=== PATIENT | female | born 1950 | race Caucasian/White ===

== ENCOUNTER 2021-12-16 06:43 | Day surgery (SDC) | payer MEDICARE ==
[~2021-12-16] VITALS: Ht 157.5 cm; Wt 88.6 kg
[2021-12-16] MEDS ORDERED: Synthroid200 MCG PO (07:50)
[2021-12-16] MEDS ORDERED: Zocor20 MG PO (07:54)
[2021-12-16] MEDS ORDERED: LOSA25 (07:54)
--- NOTE | 2021-12-16 08:32 | NUR ---
12/16/21 0832 Jai Andersen HISTORY, CHART, MEDICATIONS AND ALLERGIES REVIEWED BEFORE START OF PROCEDURE. PATIENT CONFIRMS NPO STATUS AND AGREES WITH SCHEDULED PROCEDURE. 3-LEAD EKG REVIEWED WITH PHYSICIAN PRIOR TO START OF PROCEDURE. MONITOR INTACT WITH CONTINUOUS PULSE OXIMETRY,CAPNOGRAPHY, 3-LEAD EKG, INTERMITTENT BP. SUPPLEMENTAL O2 TO BE TITRATED THROUGHOUT PROCEDURE TO MAINTAIN O2 SATURATION ABOVE 90%. PATIENT DETERMINED TO BE ASA APPROPRIATE FOR PROPOFOL SEDATION PRIOR TO START OF PROCEDURE BY DR. SANTANA.
--- NOTE | 2021-12-16 09:39 | NUR ---
IMGAING IS ABLE TO SCHEDULE PT IN THIS AM. Discharge instructions reviewed with patient. Patient verbalizes understanding. Copy given to patient to take home. PT TX TO IMAGING FOR PROCEDURE AND READY TO BE DISCHARGED FOLLOWING PROCEDURE. RIDE UPDATED.
== END 2021-12-16 23:38 | disposition home or self-care (01) ==
LOC: ORSCSDS 06:43 → ORSCMMR 06:43 → ORSCSDS 08:15
PROVIDERS: Surgery
PROC: 0DJD8ZZ Inspection of Lower Intestinal Tract, Via Natural or Artificial Opening Endoscopic (ICD-10-PCS; principal; 2021-12-16 08:15)
DX: R19.5 Other fecal abnormalities (principal); R19.4 Change in bowel habit; C80.0 Disseminated malignant neoplasm, unspecified; E78.5 Hyperlipidemia, unspecified; E03.9 Hypothyroidism, unspecified; E66.9 Obesity, unspecified; Z68.36 Body mass index [BMI] 36.0-36.9, adult; Z79.899 Other long term (current) drug therapy
CPT/HCPCS: 74270; J2704; J7120

== ENCOUNTER 2021-12-29 10:04 | Observation (INO) | payer MEDICARE ==
[~2021-12-29] VITALS: Ht 157.5 cm; Wt 92.0 kg
[~2021-12-29 10:04] MED LIST: LOSA25 PO; Synthroid200 MCG PO; Zocor20 MG PO
[2021-12-29] MEDS ORDERED: AMLO5 PO (11:22)
--- NOTE | 2021-12-29 15:00 | NUR ---
PT ARRIVES TO STEP DOWN ALERT AND TALKING. SITTING UPRIGHT IN BED. PT DENIES PAIN OR NAUSEA. R CHEST WALL INCISIONAL SITE AND R NECK INCISIONAL SITE, CDI C SKIN GLUE. PT REPOSITIONED IN BED FOR COMFORT. INTERMITTENTLY PTS BIOX DROPS TO 60-70'S. PT ABLE TO DEEP BREATH AND SPO2 RETURNS TO 90S. PT PLACED ON /02/NC p SPO2 CONTINUES TO INTERMITTENTLY DROP. HR INCREASES FROM 80S TO 120-130'S. PT DENIES SOB OR CP DURING EPISODES. PT PWD. NO CYANOSIS NOTED. PT RESTING IN BED OR INTERMITTENTLY TALKING WHEN EPISODES OCCUR. REPORTS ONGOING INTERMITTENT DIZZINESS WHEN AT HOME. LS CLEAR T/O, DIMISHED ON RIDE SIDE. XRAY COMPLETE IN PACY. EKG'S COMPLETE AND TO DR. HERNANDEZ/ED. PT MOVES TO CHAIR C ASSISTANCE FOR COMFORT, DIZZINESS C MOVEMENT. ATTEMPT TO REMOVE O2 p 99% C TITRATION, PT CONTINUES TO DESAT INTO THE LOW 80S. PLACED BACK ON 02 AND MOVED TO BED. HR REGULARLY IN 120S AT THIS TIME. PT CONTINUES TO DENY CP/SOB.
--- NOTE | 2021-12-29 15:18 | NUR ---
DR. VALENCIA CALLED FOR EVAL AND POSSIBLE ADMISSION.
--- NOTE | 2021-12-29 16:05 | NUR ---
DR. MORALES AT BEDSIDE FOR EXAM.
[2021-12-29 16:17] LABS: PCO2 Arterial 54.3 mmHg (35-45); PO2 Arterial 63.8 mmHg (80-100); pH Blood Arterial 7.38 (7.35-7.45)
[2021-12-29 16:28] LABS: BASOPHILS ABSOLUTE AUTO 0.01 K/mm3 (0.00-0.23); BASOPHILS PERCENT AUTO 0 % (0-2); EOSINOPHILS ABSOLUTE AUTO 0.08 K/mm3 (0.00-0.68); EOSINOPHILS PERCENT AUTO 1 % (0-6); Hematocrit 45.3 % (33.0-51.0); Hemoglobin 14.4 g/dL (11.5-16.0); Mean Corpuscular HGB 28.9 pg (26.0-34.0); Mean Corpuscular HGB Conc 31.8 g/dL (31.5-36.5); Mean Corpuscular Volume 91 fL (80-100); Mean Platelet Volume 10.9 fL (9.1-12.4); Platelet Count 115 K/mm3 (150-400); RDW Coefficient Variation 13.2 % (11.7-14.2); RDW Standard Deviation 44.7 fL (35.1-46.3); Red Blood Cell Count 4.99 M/mm3 (3.80-5.20); White Blood Cell Count 6.66 K/mm3 (4.00-11.30)
[2021-12-29 16:29] LABS: IMMATURE GRAN PERCENT AUTO 0 % (0-1); LYMPHOCYTES ABSOLUTE AUTO 0.19 K/mm3 (0.84-5.20); LYMPHOCYTES PERCENT AUTO 3 % (21-46); MONOCYTES PERCENT AUTO 1 % (4-13); NEUTROPHILS ABSOLUTE AUTO 6.33 K/mm3 (1.96-9.15); NEUTROPHILS PERCENT AUTO 95 % (41-73)
[2021-12-29 16:30] LABS: IMMATURE GRAN ABSOLUTE AUTO 0.01 K/mm3 (0.00-0.10); MONOCYTES ABSOLUTE AUTO 0.04 K/mm3 (0.16-1.47)
--- NOTE | 2021-12-29 16:50 | NUR ---
TOOK OVER PATIENT CARE AFTER REPORT WAS RECEIVED FROM NURSE. WAITING ON NURSE SUPERVISIOR FOR A PCU BED FOR PATIENT TO BE ADMITTED.
--- NOTE | 2021-12-29 17:02 | NUR ---
PATIENT TO CT VIA [facility]
[2021-12-29 17:20] LABS: Albumin, Blood 3.1 g/dL (3.4-5.0); Albumin/Globulin Ratio 0.9 (0.8-1.8); Bilirubin, Total 0.6 mg/dL (0.1-1.0); Bun/Creatinine Ratio 22.2 (12.0-20.0); Calcium, Blood 8.2 mg/dL (8.5-10.1); Creatinine, Blood 0.63 mg/dL (0.40-1.00); Globulin, Blood 3.3 g/dL (2.2-4.0); Potassium, Blood 3.7 mmol/L (3.5-5.5); Total Protein, Blood 6.4 g/dL (6.4-8.2)
--- NOTE | 2021-12-29 21:13 | NUR ---
Assumed care 1900. VSS on 2L sating 90-94%. Pt tachypnea with excertion. RR 20-26. Tele: SR/ST 80-120s. Pt has fluid running 75ml/hr and antibiotic given this evening per orders. Pt up with supervision to bathroom. Will continue to monitor.
--- NOTE | 2021-12-29 21:44 | NUR ---
Increased oxygen to 3L nasal canula while pt is sleeping, desat to 88-90 while sleeping.
--- NOTE | 2021-12-29 23:40 | NUR ---
At 2300 vital, pt temp up to 100.3 and HR is sustaining 120s, MD updated on pt and new orders for antibiotics and labs added by .
--- NOTE | 2021-12-30 00:03 | NUR ---
Pt is diaphoretic, bolus 1L is running. Oxygen 92-95% on 3L. Abx given. Will check vitals closely. BP stable at this time. HR 120s sustained. MD aware and ordered labs, bolus and additional abx. Pt pretty sleepy/ drowsy, but does wake up to voice. Falls back alseep quickly. Oriented x4 at this time.
[2021-12-30 01:06] LABS: BASOPHILS ABSOLUTE AUTO 0.01 K/mm3 (0.00-0.23); BASOPHILS PERCENT AUTO 0 % (0-2); EOSINOPHILS ABSOLUTE AUTO 0.06 K/mm3 (0.00-0.68); EOSINOPHILS PERCENT AUTO 1 % (0-6); Hematocrit 40.4 % (33.0-51.0); Hemoglobin 12.8 g/dL (11.5-16.0); Mean Corpuscular HGB 29.2 pg (26.0-34.0); Mean Corpuscular HGB Conc 31.7 g/dL (31.5-36.5); Mean Corpuscular Volume 92 fL (80-100); Mean Platelet Volume 10.8 fL (9.1-12.4); Platelet Count 86 K/mm3 (150-400); RDW Coefficient Variation 13.2 % (11.7-14.2); RDW Standard Deviation 44.8 fL (35.1-46.3); Red Blood Cell Count 4.39 M/mm3 (3.80-5.20); White Blood Cell Count 5.27 K/mm3 (4.00-11.30)
[2021-12-30 01:13] LABS: IMMATURE GRAN ABSOLUTE AUTO 0.01 K/mm3 (0.00-0.10); IMMATURE GRAN PERCENT AUTO 0 % (0-1); LYMPHOCYTES ABSOLUTE AUTO 0.17 K/mm3 (0.84-5.20); LYMPHOCYTES PERCENT AUTO 3 % (21-46); MONOCYTES ABSOLUTE AUTO 0.06 K/mm3 (0.16-1.47); MONOCYTES PERCENT AUTO 1 % (4-13); NEUTROPHILS ABSOLUTE AUTO 4.96 K/mm3 (1.96-9.15); NEUTROPHILS PERCENT AUTO 94 % (41-73)
[2021-12-30 01:18] LABS: Albumin, Blood 2.6 g/dL (3.4-5.0); Anion Gap 6 mmol/L (6-16); Blood Urea Nitrogen 10 mg/dL (8-24); Bun/Creatinine Ratio 21.6 (12.0-20.0); CO2, Blood 30 mmol/L (21-32); Calcium, Blood 7.5 mg/dL (8.5-10.1); Chloride, Blood 101 mmol/L (98-108); Creatinine, Blood 0.46 mg/dL (0.40-1.00); Glomerular Filtration Rate 101 (60-); Glucose, Blood 108 mg/dL (70-99); Potassium, Blood 3.6 mmol/L (3.5-5.5); Sodium, Blood 137 mmol/L (136-145)
--- NOTE | 2021-12-30 03:49 | NUR ---
Updated MD that HR has still been sustaining 110-120s after bolus.
--- NOTE | 2021-12-30 04:16 | NUR ---
family welfare social work professor Note: Pt is alert &oriented, but has been pretty drowsy throughout the night. Wakes up easily, but falls right back to sleep. HR titrated up to 110-120s and sustained and pt spiked a fever overnight 100.3. MD notifed and lactic acid, CBC, 1L bolus and additional antibiotic orders added by Dr. Martinez. Fluid continued at 75ml/hr. HR did decrease briefly after bolus to 90s, but then jumped back up to 110-120s, MD notified. Pt has been on 2-3L to sustain >90. Pt drops some when sleepin and rate is irregular when pt is sleeping[facility], no redness or swelling noticed on assessment. Supervision when up to bathroom. 2 PIVs, both are working well.
[2021-12-30 04:44] LABS: BASOPHILS ABSOLUTE AUTO 0.03 K/mm3 (0.00-0.23); BASOPHILS PERCENT AUTO 1 % (0-2); EOSINOPHILS ABSOLUTE AUTO 0.09 K/mm3 (0.00-0.68); EOSINOPHILS PERCENT AUTO 2 % (0-6); Hematocrit 41.2 % (33.0-51.0); Hemoglobin 13.2 g/dL (11.5-16.0); IMMATURE GRAN ABSOLUTE AUTO 0.04 K/mm3 (0.00-0.10); IMMATURE GRAN PERCENT AUTO 1 % (0-1); LYMPHOCYTES ABSOLUTE AUTO 0.22 K/mm3 (0.84-5.20); LYMPHOCYTES PERCENT AUTO 5 % (21-46); MONOCYTES ABSOLUTE AUTO 0.09 K/mm3 (0.16-1.47); MONOCYTES PERCENT AUTO 2 % (4-13); Mean Corpuscular HGB 29.1 pg (26.0-34.0); Mean Corpuscular Volume 91 fL (80-100); NEUTROPHILS ABSOLUTE AUTO 4.38 K/mm3 (1.96-9.15); NEUTROPHILS PERCENT AUTO 90 % (41-73); RDW Coefficient Variation 13.1 % (11.7-14.2); RDW Standard Deviation 43.6 fL (35.1-46.3); Red Blood Cell Count 4.54 M/mm3 (3.80-5.20); White Blood Cell Count 4.85 K/mm3 (4.00-11.30)
[2021-12-30 05:00] LABS: Mean Platelet Volume 11.3 fL (9.1-12.4); Platelet Count 83 K/mm3 (150-400)
[2021-12-30 13:02] LABS: Influenza A, PCR NEGATIVE (NEGATIVE); Influenza B, PCR NEGATIVE (NEGATIVE); Resp Syncytial Virus, PCR NEGATIVE (NEGATIVE); SARS-Cov-2 (COVID-19) PCR, MMC NEGATIVE (NEGATIVE)
--- NOTE | 2021-12-30 17:57 | NUR ---
SHIFT SUMMARY; ASSUMED CARE AT 0700. A/A/OX4. INDEPENDANT IN ROOM. DRESSING ON MEDIPORT SITE CLEAN DRY AND INTACT. IV FLUIDS INFUSING AT 75ML/HR. 2L O2 TO MAINTAIN SATS AT 94%. TMAX IN AFTERNOON AT 101.7. UPDATED DR. THRASHER, WILL CONTINUE TO MONITOR. PT DECLINES TYL FOR TEMP. L/S DIM THROUGHOUT. WILL CONTINUE TO MONITOR AND TREAT UNTIL CHANGE OF SHIFT.
--- NOTE | 2021-12-30 21:51 | NUR ---
Pt was asking about home medication levothyroxine, Dr. Laws called and new order placed for home med to be added back in.
--- NOTE | 2021-12-31 02:07 | NUR ---
Pt sustaining 120-130s HR, notified. One time dose of Lopressor 5mg ordered per Dr. Stratton.
--- NOTE | 2021-12-31 02:38 | NUR ---
Pt HR now 80s after 5mg IV lopressor.
[2021-12-31 04:09] LABS: BASOPHILS ABSOLUTE AUTO 0.02 K/mm3 (0.00-0.23); BASOPHILS PERCENT AUTO 1 % (0-2); EOSINOPHILS ABSOLUTE AUTO 0.06 K/mm3 (0.00-0.68); EOSINOPHILS PERCENT AUTO 3 % (0-6); Hematocrit 38.6 % (33.0-51.0); Hemoglobin 12.2 g/dL (11.5-16.0); IMMATURE GRAN ABSOLUTE AUTO 0.02 K/mm3 (0.00-0.10); IMMATURE GRAN PERCENT AUTO 1 % (0-1); LYMPHOCYTES ABSOLUTE AUTO 0.18 K/mm3 (0.84-5.20); LYMPHOCYTES PERCENT AUTO 8 % (21-46); MONOCYTES ABSOLUTE AUTO 0.08 K/mm3 (0.16-1.47); MONOCYTES PERCENT AUTO 4 % (4-13); Mean Corpuscular HGB 28.7 pg (26.0-34.0); Mean Corpuscular HGB Conc 31.6 g/dL (31.5-36.5); Mean Corpuscular Volume 91 fL (80-100); Mean Platelet Volume 11.5 fL (9.1-12.4); NEUTROPHILS ABSOLUTE AUTO 1.95 K/mm3 (1.96-9.15); NEUTROPHILS PERCENT AUTO 84 % (41-73); Platelet Count 77 K/mm3 (150-400); Red Blood Cell Count 4.25 M/mm3 (3.80-5.20); White Blood Cell Count 2.31 K/mm3 (4.00-11.30)
--- NOTE | 2021-12-31 04:14 | NUR ---
Automatic Vulcanizing Lead Operator Note: Pt alert and oriented. BP stable. HR was 90s at start of shift, around midnight was sustaining 120-130s, one time dose of metoprolol given per night hospitalist. HR 80s after dose. Fluids running 75ml/hr. 2-3L oxygen, desats some when sleeping. Slept on and off overnight.
[2021-12-31 04:23] LABS: Albumin, Blood 2.5 g/dL (3.4-5.0); Anion Gap 5 mmol/L (6-16); Blood Urea Nitrogen 6 mg/dL (8-24); Bun/Creatinine Ratio 14.1 (12.0-20.0); CO2, Blood 32 mmol/L (21-32); Calcium, Blood 7.8 mg/dL (8.5-10.1); Chloride, Blood 102 mmol/L (98-108); Creatinine, Blood 0.43 mg/dL (0.40-1.00); Glomerular Filtration Rate 103 (60-); Glucose, Blood 117 mg/dL (70-99); Magnesium, Blood 2.2 mg/dL (1.6-2.4); Phosphorus, Blood 2.3 mg/dL (2.5-4.9); Potassium, Blood 3.6 mmol/L (3.5-5.5); Sodium, Blood 139 mmol/L (136-145)
--- NOTE | 2021-12-31 06:32 | NUR ---
Pt wheezing this AM and SOB, RT paged for prn breathing tx.
--- NOTE | 2021-12-31 11:49 | NUR ---
PATIENT TRANSFERED UP FROM [facility]. SHE HAS K-PHOS RUNNING AT THIS TIME. SHE WILL BE SALINE LOCKED AFTERWARD. 4 LITERS OF OXYGEN/NC IS IN PLACE. DENIES SOB. LS ARE MORE DIMINISHED ON THE RIGHT SIDE, WITH VERY FEW CRACKLES THROUGHOUT BILATERALLY. SHE HAS SLIGHT EDEMA IN LOWER EXTREMITIES. DENIES PAIN. PATIENT IS ALERT AND ORIENTATED, RESTING ON BED WITH EYES CLOSED AT THIS TIME.
--- NOTE | 2021-12-31 16:50 | NUR ---
T/C RECEIVED FROM TELE MONITOR, PT HAS BEEN SUSTAINING IN THE 130'S, PT RESTING COMFORTABLY WHEN CHECKED. NO S/S OF DISTRESS. CALL TO DR THRASHER, ORDERS FOR IV LOPRESSOR TO BE PLACED.
--- NOTE | 2021-12-31 17:15 | NUR ---
5 MG IV LOPRESSOR PUSHED, WILL MONITOR RESULTS
--- NOTE | 2021-12-31 17:25 | NUR ---
T/C FROM TELE MONITOR, PT'S HR IS NOW IN THE 80'S.
[2022-01-01 05:12] LABS: Hematocrit 38.1 % (33.0-51.0); Hemoglobin 12.1 g/dL (11.5-16.0); Mean Corpuscular HGB 28.8 pg (26.0-34.0); Mean Corpuscular HGB Conc 31.8 g/dL (31.5-36.5); Mean Corpuscular Volume 91 fL (80-100); Mean Platelet Volume 11.4 fL (9.1-12.4); Platelet Count 90 K/mm3 (150-400); RDW Coefficient Variation 13.1 % (11.7-14.2); RDW Standard Deviation 43.8 fL (35.1-46.3); White Blood Cell Count 5.23 K/mm3 (4.00-11.30)
[2022-01-01 05:35] LABS: Albumin, Blood 2.5 g/dL (3.4-5.0); Anion Gap 7 mmol/L (6-16); Blood Urea Nitrogen 5 mg/dL (8-24); Bun/Creatinine Ratio 11.9 (12.0-20.0); CO2, Blood 32 mmol/L (21-32); Calcium, Blood 8.6 mg/dL (8.5-10.1); Chloride, Blood 100 mmol/L (98-108); Creatinine, Blood 0.42 mg/dL (0.40-1.00); Glomerular Filtration Rate 103 (60-); Glucose, Blood 103 mg/dL (70-99); Phosphorus, Blood 2.4 mg/dL (2.5-4.9); Potassium, Blood 3.6 mmol/L (3.5-5.5); Sodium, Blood 139 mmol/L (136-145)
[2022-01-01 05:52] LABS: BAND PERCENT MAN 24 % (0-8); BASOPHILS PERCENT MAN 2 % (0-2); EOSINOPHILS ABSOLUTE MAN 0.26 K/mm3 (0.00-0.68); EOSINOPHILS PERCENT MAN 5 % (0-6); LYMPHOCYTES ABSOLUTE MAN 0.31 K/mm3 (0.84-5.20); LYMPHOCYTES PERCENT MAN 6 % (21-46); MONOCYTES ABSOLUTE MAN 0.15 K/mm3 (0.16-1.47); MONOCYTES PERCENT MAN 3 % (4-13); NEUTROPHILS ABSOLUTE MAN 4.39 K/mm3 (1.96-9.15); SEG NEUTROPHILS PERCENT MAN 60 % (41-73); TOTAL CELLS COUNTED 100
--- NOTE | 2022-01-01 17:49 | NUR ---
SHIFT SUMMARY PT ALERT AND ORIENTED, FOLLOWS COMMANDS. DOSE 2 OF 5 OF NYVESTYM RECEIVED TODAY, ELECTROLYTE REPLACEMENT. PT AMBUALTES TO BATHROOM UNASSISTED, GETS SOB FOLLOWING EXERTION. CURRENTLY ON 2LNC. WILL CONTINUE TO MONITOR.
--- NOTE | 2022-01-01 20:17 | NUR ---
NURSE NOTE: ANGELICA TILLEY NOTIFIED 4 SECOND RUN OF SVT HR UP TO 190 OCCURRED WHEN COUGHING- RESOLVED NO ADDITIONAL SYMPTOMS. - BP 158/60 AND CURRENT TEMP 101.2, NO CURRENT ORDERS FOR ACETAMINOPHEN -ANGELICA TILLEY GAVE TELEPHONE ORDER FOR PO 650 MG ACETAMINOPHEN Q8H FOR FEVER
--- NOTE | 2022-01-02 03:59 | NUR ---
SHIFT SUMMARY: A/O X4, ADLIB IN ROOM. PATIENT HAVING CONTINUED SHORTNESS OF BREATH WITH EXERTION AND OCCASSIONALLY AT REST. FEVER NOTED AT THE BEGINNING OF SHIFT 101.2 RESOLVED POST ADMINISTRATION ACETAMINOPHEN. PT DID COMPLAIN OF NIGHT SWEATS AND- CONTINUED TO REMAIN AFEBRILE. NO COMPLAINTS OF PAIN THROUGHOUT THE NIGHT.
[2022-01-02 05:40] LABS: Hematocrit 38.6 % (33.0-51.0); Mean Corpuscular HGB 28.4 pg (26.0-34.0); Mean Corpuscular HGB Conc 31.1 g/dL (31.5-36.5); Mean Corpuscular Volume 92 fL (80-100); Mean Platelet Volume 11.9 fL (9.1-12.4); Platelet Count 102 K/mm3 (150-400); RDW Coefficient Variation 13.3 % (11.7-14.2); RDW Standard Deviation 44.8 fL (35.1-46.3); Red Blood Cell Count 4.22 M/mm3 (3.80-5.20); White Blood Cell Count 6.23 K/mm3 (4.00-11.30)
[2022-01-02 06:04] LABS: BAND PERCENT MAN 11 % (0-8); BASOPHILS ABSOLUTE MAN 0.06 K/mm3 (0.00-0.23); BASOPHILS PERCENT MAN 1 % (0-2); EOSINOPHILS ABSOLUTE MAN 0.06 K/mm3 (0.00-0.68); EOSINOPHILS PERCENT MAN 1 % (0-6); LYMPHOCYTES ABSOLUTE MAN 0.06 K/mm3 (0.84-5.20); LYMPHOCYTES PERCENT MAN 1 % (21-46); MONOCYTES ABSOLUTE MAN 0.43 K/mm3 (0.16-1.47); MONOCYTES PERCENT MAN 7 % (4-13); SEG NEUTROPHILS PERCENT MAN 79 % (41-73); TOTAL CELLS COUNTED 100
[2022-01-02 06:08] LABS: Albumin, Blood 2.5 g/dL (3.4-5.0); Anion Gap 7 mmol/L (6-16); Blood Urea Nitrogen 7 mg/dL (8-24); Bun/Creatinine Ratio 17.6 (12.0-20.0); CO2, Blood 32 mmol/L (21-32); Calcium, Blood 8.6 mg/dL (8.5-10.1); Chloride, Blood 99 mmol/L (98-108); Glomerular Filtration Rate 104 (60-); Glucose, Blood 99 mg/dL (70-99); Phosphorus, Blood 3.7 mg/dL (2.5-4.9); Potassium, Blood 3.7 mmol/L (3.5-5.5); Sodium, Blood 138 mmol/L (136-145)
--- NOTE | 2022-01-02 16:57 | NUR ---
SHIFT SUMMARY PATIENT ALERT AND ORIENTED, FOLLOWS COMMANDS. PT INDEPENDENT, AMBULATES TO BATHROOM UNASSISTED. IV ABX CHANGED, BC DRAWN. MORE ELECTROLYTE REPLACEMENT COMPLETED. PATIENT STILL SOB ON EXERTION, ON 2-3L NC. NO C/O PAIN. WILL CONTINUE TO MONITOR
--- NOTE | 2022-01-03 05:19 | NUR ---
SHIFT SUMMARY: A/O X4, ADLIB IN ROOM. PT HAD SLIGHT ELEVATED TEMP AT BEGINNING OF SHIFT- RESOLVED WITH PO ACETAMINOPHEN. CONTINUED NIGHT SWEATS AND SHORTNESS OF BREATH AT REST AND EXERTION. O2 REMAINS 2L NASAL CANNULA- SATING WELL. NO COMPLAINTS OF PAIN THROUGHOUT THE NIGHT.
[2022-01-03 05:52] LABS: Hematocrit 38.7 % (33.0-51.0); Hemoglobin 12.2 g/dL (11.5-16.0); Mean Corpuscular HGB 28.8 pg (26.0-34.0); Mean Corpuscular HGB Conc 31.5 g/dL (31.5-36.5); Mean Corpuscular Volume 91 fL (80-100); Mean Platelet Volume 11.9 fL (9.1-12.4); Platelet Count 151 K/mm3 (150-400); RDW Coefficient Variation 13.4 % (11.7-14.2); RDW Standard Deviation 45.6 fL (35.1-46.3); Red Blood Cell Count 4.24 M/mm3 (3.80-5.20); White Blood Cell Count 6.16 K/mm3 (4.00-11.30)
[2022-01-03 05:57] LABS: Albumin, Blood 2.4 g/dL (3.4-5.0); Anion Gap 7 mmol/L (6-16); Blood Urea Nitrogen 6 mg/dL (8-24); Bun/Creatinine Ratio 13.2 (12.0-20.0); CO2, Blood 33 mmol/L (21-32); Calcium, Blood 8.7 mg/dL (8.5-10.1); Chloride, Blood 99 mmol/L (98-108); Creatinine, Blood 0.46 mg/dL (0.40-1.00); Glomerular Filtration Rate 101 (60-); Glucose, Blood 107 mg/dL (70-99); Magnesium, Blood 1.9 mg/dL (1.6-2.4); Phosphorus, Blood 3.7 mg/dL (2.5-4.9); Potassium, Blood 3.7 mmol/L (3.5-5.5); Sodium, Blood 139 mmol/L (136-145)
[2022-01-03 06:02] LABS: BASOPHILS ABSOLUTE AUTO 0.04 K/mm3 (0.00-0.23); BASOPHILS PERCENT AUTO 1 % (0-2); EOSINOPHILS ABSOLUTE AUTO 0.13 K/mm3 (0.00-0.68); EOSINOPHILS PERCENT AUTO 2 % (0-6); IMMATURE GRAN ABSOLUTE AUTO 0.34 K/mm3 (0.00-0.10); IMMATURE GRAN PERCENT AUTO 6 % (0-1); LYMPHOCYTES ABSOLUTE AUTO 0.52 K/mm3 (0.84-5.20); LYMPHOCYTES PERCENT AUTO 8 % (21-46); MONOCYTES ABSOLUTE AUTO 0.68 K/mm3 (0.16-1.47); MONOCYTES PERCENT AUTO 11 % (4-13); NEUTROPHILS ABSOLUTE AUTO 4.45 K/mm3 (1.96-9.15); NEUTROPHILS PERCENT AUTO 72 % (41-73)
[2022-01-03 11:45] LABS: Vancomycin, Trough 5.8 ug/mL (5.0-10.0)
--- NOTE | 2022-01-03 17:45 | NUR ---
SHIFT SUMMARY PT ALERT AND ORIENTED, INDEPENDENT, FOLLOWS COMMANDS. PT STILL SOB UPON AMBULATION OR WITH ANY EXERTION. PT UP TO SHOWER, TOLERATED. PT REMAINS AFEBRILE DURING SHIFT. NO C/O PAIN. WILL CONTINUE TO MONITOR.
--- NOTE | 2022-01-04 04:57 | NUR ---
SHIFT SUMMARY: A/OX4. PT HAS BEEN ADLIB SINCE ADMISSION, TONIGHT PT BECAME UNSTEADY AND REPORTED FEELING INCREASED WEAKNESS WITH ONSET OF DIZZINESS WHEN AMBULATING. PT EDUCATED ON SAFETY AND NEW PLAN FOR BED ALARM ACTIVATION AND FOR HER TO CALL FOR STANDBY ASSISTANCE WHEN AMBULATING TO BATHROOM. CONTINUED SHORTNESS OF BREATH AT REST AND INCREASED SHORTNESS OF BREATH WHEN AMBULATING. NIGHT SWEATS REMAIN, PT WAKES COMPLETELY SOAKED WITH SWEAT REQUIRING GOWN CHANGED- PT REPORTS THIS IS ONGOING FOR HER AND HAPPENS AT HOME WELL. BED ALARM ACTIVATED, BED IN LOW POSITION, CALL BARTON AND BELONGINGS IN REACH.
[2022-01-04 05:18] LABS: Hematocrit 39.2 % (33.0-51.0); Hemoglobin 12.1 g/dL (11.5-16.0); Mean Corpuscular HGB 28.8 pg (26.0-34.0); Mean Corpuscular HGB Conc 30.9 g/dL (31.5-36.5); Mean Corpuscular Volume 93 fL (80-100); Mean Platelet Volume 11.5 fL (9.1-12.4); Platelet Count 185 K/mm3 (150-400); RDW Coefficient Variation 13.6 % (11.7-14.2); RDW Standard Deviation 46.5 fL (35.1-46.3); White Blood Cell Count 9.42 K/mm3 (4.00-11.30)
[2022-01-04 05:39] LABS: Albumin, Blood 2.5 g/dL (3.4-5.0); Anion Gap 5 mmol/L (6-16); Blood Urea Nitrogen 8 mg/dL (8-24); Bun/Creatinine Ratio 17.2 (12.0-20.0); CO2, Blood 35 mmol/L (21-32); Calcium, Blood 8.8 mg/dL (8.5-10.1); Chloride, Blood 95 mmol/L (98-108); Creatinine, Blood 0.47 mg/dL (0.40-1.00); Glomerular Filtration Rate 100 (60-); Glucose, Blood 113 mg/dL (70-99); Magnesium, Blood 2.2 mg/dL (1.6-2.4); Phosphorus, Blood 4.2 mg/dL (2.5-4.9); Potassium, Blood 3.5 mmol/L (3.5-5.5); Sodium, Blood 135 mmol/L (136-145)
[2022-01-04 05:57] LABS: BAND PERCENT MAN 30 % (0-8); BASOPHILS PERCENT MAN 0 % (0-2); EOSINOPHILS PERCENT MAN 0 % (0-6); LYMPHOCYTES ABSOLUTE MAN 0.65 K/mm3 (0.84-5.20); LYMPHOCYTES PERCENT MAN 7 % (21-46); METAMYELOCYTE ABSOLUTE MAN 0.09 K/mm3 (0.00-0.00); METAMYELOCYTE PERCENT MAN 1 % (0-0); MONOCYTES ABSOLUTE MAN 1.13 K/mm3 (0.16-1.47); MONOCYTES PERCENT MAN 12 % (4-13); MYELOCYTE ABSOLUTE MAN 0.18 K/mm3 (0.00-0.00); MYELOCYTE PERCENT MAN 2 % (0-0); NEUTROPHILS ABSOLUTE MAN 7.34 K/mm3 (1.96-9.15); SEG NEUTROPHILS PERCENT MAN 48 % (41-73); TOTAL CELLS COUNTED 100
[2022-01-04 10:02] LABS: SARS-Cov-2 (COVID-19) PCR, MMC NEGATIVE (NEGATIVE)
--- NOTE | 2022-01-04 10:48 | NUR ---
Arrived to Pt's room with AIRCRAFT PARTS ASSEMBLER providing emergent care. Called Pt's sister Sera, provided update and answered questions. Sera requests Pt's daughter Honey to be contacted as well. Called and provided update with daughter. Answered questions and offered supportive listening. Palliative Care will remain available.
[2022-01-04 10:58] LABS: Source, Urine Foley catheter
--- NOTE | 2022-01-04 11:21 | NUR ---
TRANSFER TO ICU PT ARRIVES AT 1030. BEDSIDE REPORT. CODING TECH CALLED FOR RESP DISTRESS. ARRIVES INTUBATED. 7.0, 22 AT LIP. VENT SETTINGS AC/VC 16/400/5/50%. LUNGS COARSE THROUGHOUT. MODERATE BLOODY SECRETIONS THROUGH ETT. REPORT OF TRAMATIC INTUBATION. PT INITIALLY UNRESPONSIVE ON ARRIVAL. PT THEN OPENS EYES, PULLS ON RESTRAINTS, DOES NOT FOLLOW COMMANDS. PROPOFOL GTT STARTED FOR VENT COMPLIANCE. OGT PLACED, LIS, SCANT BROWN EMESIS OUT. NOYOLA PLACED, CLEAR YELLOW URINE OUT. WILL CONTINUE TO MONITOR.
[2022-01-04 11:23] LABS: Appearance, Urine Hazy (Clear); Bilirubin, Urine Neg (Neg); Blood, Urine Neg (Neg); Color, Urine Yellow (P-Yellow); Glucose Qualitative, Urine Neg (Neg); Ketones, Urine Neg (Neg); Leukocyte Esterase, Urine Neg (Neg); Nitrite, Urine Neg (Neg); Protein, Urine 3+ (Neg); Specific Gravity, Urine 1.025 (1.003-1.022); Urobilinogen, Urine NORM (Normal)
--- NOTE | 2022-01-04 12:02 | NUR ---
PARTIAL SHIFT SUMMARY- PT COHERENT DURING FIRST FEW HOURS OF SHIFT. PT APPEARED DYSPNEC BUT DENIED SOB UNTIL 9:30. PT SITTING UP IN BED ATTEMPTING TO EAT BREAKFAST AROUND 8:30 AM, APPETITE POOR. PT BECAME MORTE DIAPHORETIC THAN USUAL. NIGHT NURSE REPORT FREQUENT SWEATING THROUGH GOWNS. PT SAT'D IN 80'S FOR ABOUT 10-15 MINS, AT THAT TIME DR AND RT WAS CONTACTED FOR EVAL. TRANSFERRED TO ICU VIA BED.
[2022-01-04 12:09] LABS: Bacteria Few /hpf; Granular Casts 25-50 /lpf (0); Red Blood Cells, Urine 0-2 /hpf (0-2); Squamous Epithelial Cells Rare /hpf (Few); White Blood Cells, Urine 0-2 /hpf (0-5)
[2022-01-04 12:20] LABS: Adenovirus Not Detected (NOT DETECT); Bordetella pertussis Not Detected (NOT DETECT); Chlamydophila pneumoniae Not Detected (NOT DETECT); Coronavirus 229E Not Detected (NOT DETECT); Coronavirus HKU1 Not Detected (NOT DETECT); Coronavirus NL63 Not Detected (NOT DETECT); Coronavirus OC43 Not Detected (NOT DETECT); Human Metapneumovirus Not Detected (NOT DETECT); Human Rhinovirus/Enterovirus Not Detected (NOT DETECT); Influenza A/2009-H1 Not Detected (NOT DETECT); Influenza A/H1 Not Detected (NOT DETECT); Influenza A/H3 Not Detected (NOT DETECT); Influenza B Not Detected (NOT DETECT); Mycoplasma pneumoniae Not Detected (NOT DETECT); Parainfluenza Virus 1 Not Detected (NOT DETECT); Parainfluenza Virus 2 Not Detected (NOT DETECT); Parainfluenza Virus 3 Not Detected (NOT DETECT); Parainfluenza Virus 4 Not Detected (NOT DETECT); Respiratory Syncytial Virus Not Detected (NOT DETECT); SARS-Cov-2 (COVID-19), BioFire Not Detected (NOT DETECT)
--- NOTE | 2022-01-04 17:47 | NUR ---
SHIFT SUMMARY PT TRANSFERRED TO ICU AND INTUBATED THIS SHIFT. SEE PREVIOUS NOTE. VENT SETTINGS AC/VC 16/400/5/40%. LUNGS COARSE. SMALL, THICK SECRETIONS THROUGH ETT, BLOODY. PROPOFOL GTT INFUSING FOR SEDATION. PT PIERSON, ABLE TO FOLLOW COMMANDS WHEN SEDATION LIGHTENED. COUGH/GAG/SWALLOW REFLEX PRESENT. OGT CLAMPED AFTER MED ADMINSTRATION. NOYOLA PATENT, DRAINED 550 ML CLEAR YELLOW URINE TO GRAVITY. MEDIPORT OK TO ACCESS PER DR HERNANDEZ IF CENTRAL ACCESS NEEDED. POWERGLIDE PLACED TO RUE. WILL CONTINUE TO MONITOR UNTIL REPORT TO ONCOMING NURSE.
--- NOTE | 2022-01-04 19:14 | NUR ---
ASSUMED CARE PATIENT LYING IN BED INTUBATED WITH 7.0 ETT 23M AT TEETH-VENT SETTINGS AC/VC 16/400/5/45% WITH SPO2 89-92%. SEDATED WITH PROPOFOL @ 20 MCG/KG/MIN. PATIENT IS MOVING FEET IN BED, ATTEMPTS TO OPEN EYES, AND SQUEEZES HANDS. LEVOPHED INF TO JAMIE 18G PIV W/ PROPOFOL. 20G LT AC PIV SALINE LOCKED. PG TO STEVE HAS NS TKO INF. MONITOR SHOWS NSR WITH RATE 80'S. BP STABLE WITH MAPS GREATER THAN 65. OGT IN PLACE AND CLAMPED. NOYOLA PATENT AND DRAINING YELLOW CLEAR URINE TO GRAVITY. BILATERAL CALF SCDS PLACED ON PATIENT PER MD ORDERS. REPORT COMPLETED WITH IBAN CHAND.
[2022-01-04 23:47] LABS: Vancomycin, Trough 24.9 ug/mL (5.0-10.0)
--- NOTE | 2022-01-05 06:35 | NUR ---
SHIFT SUMMARY PATIENT REMAINED INTUBATE AND SEDATED T/O SHIFT. PATIENT IS AWAKE ON PROPOFOL 20MCG/KG/MIN. AWAKENS EASILY, FOLLOWS COMMANDS, USES COMMUNICATION BOARD AND ASKS APPROPRIATE QUESTIONS USING THE BOARD SUCH WHERE SHE IS AND WHY. VENT SETTINGS REMAIN AT 16/400/5/35% WITH SPO2 90-92%. OGT TO LOW INTERMITTENT SUCTION T/O SHIFT-NOW CLAMPED FOLLOWING SYNTHROID ADMINISTRATION. LUNG SOUNDS COARSE T/O WITH SMALL AMOUNTS OF THICK JACK SECRETIONS. RHYTHM REMAINS SINUS WITH RATE 80'S-UP TO 120'S WITH REPOSITIONING AND SUCTIONING. LEVOPHED INF @ 6MCG/MIN WITH BP STABLE, MAPS 65 AND ABOVE. NOYOLA PATENT AND DRAINED 270ML DARK YELLOW CLOUDY URINE OUT. ONE BM AT THE END OF SHIFT-DARK GREEN STOOL WITH MUCOUS. NO OTHER CHANGES DURING SHIFT.
[2022-01-05 08:14] LABS: Hematocrit 35.3 % (33.0-51.0); Hemoglobin 11.2 g/dL (11.5-16.0); Mean Corpuscular HGB 28.9 pg (26.0-34.0); Mean Corpuscular HGB Conc 31.7 g/dL (31.5-36.5); Mean Corpuscular Volume 91 fL (80-100); Mean Platelet Volume 11.4 fL (9.1-12.4); NRBC ABSOLUTE 0.02 K/mm3 (0.00-0.02); NRBC Auto 0.1 /100 WBC (0.0-0.2); Platelet Count 182 K/mm3 (150-400); RDW Standard Deviation 47.3 fL (35.1-46.3); Red Blood Cell Count 3.88 M/mm3 (3.80-5.20); White Blood Cell Count 21.49 K/mm3 (4.00-11.30)
--- NOTE | 2022-01-05 08:15 | NUR ---
ASSUMED CARE REPORT FROM KASH FERRERA AT 0700. PT INTUBATED AND SEDATED. VENT SETTINGS AC/VC 16/400/5/45%. LUNGS COARSE IN BASES. SMALL AMOUNT OF THICK BLOODY/JACK SECRETIONS THROUGH ETT. COUGH/GAG/SWALLOW REFLEX. PROPOFOL GTT FOR SEDATION. PT ABLE TO FOLLOW SIMPLE COMMANDS. PIERSON. LEVO GTT FOR MAP >65. INFUSING VIA POWERGLIDE TO LUE, GOOD BLOOD RETURN. SR, RATE 80'S. OGT CLAMPED FOR MED ADM. NOYOLA PATENT, DRAINING CLEAR YELLOW URINE TO GRAVITY. WILL CONTINUE TO MONITOR.
[2022-01-05 08:36] LABS: Albumin, Blood 1.8 g/dL (3.4-5.0); Albumin/Globulin Ratio 0.6 (0.8-1.8); Bilirubin, Total 0.5 mg/dL (0.1-1.0); Bun/Creatinine Ratio 15.4 (12.0-20.0); Calcium, Blood 7.4 mg/dL (8.5-10.1); Creatinine, Blood 1.04 mg/dL (0.40-1.00); Globulin, Blood 2.8 g/dL (2.2-4.0); Potassium, Blood 3.5 mmol/L (3.5-5.5); Total Protein, Blood 4.6 g/dL (6.4-8.2)
[2022-01-05 08:53] LABS: BAND PERCENT MAN 25 % (0-8); BASOPHILS PERCENT MAN 0 % (0-2); EOSINOPHILS ABSOLUTE MAN 0.42 K/mm3 (0.00-0.68); EOSINOPHILS PERCENT MAN 2 % (0-6); LYMPHOCYTES ABSOLUTE MAN 1.71 K/mm3 (0.84-5.20); LYMPHOCYTES PERCENT MAN 8 % (21-46); METAMYELOCYTE ABSOLUTE MAN 0.64 K/mm3 (0.00-0.00); METAMYELOCYTE PERCENT MAN 3 % (0-0); MONOCYTES ABSOLUTE MAN 0.42 K/mm3 (0.16-1.47); MONOCYTES PERCENT MAN 2 % (4-13); MYELOCYTE ABSOLUTE MAN 0.42 K/mm3 (0.00-0.00); MYELOCYTE PERCENT MAN 2 % (0-0); NEUTROPHILS ABSOLUTE MAN 17.83 K/mm3 (1.96-9.15); SEG NEUTROPHILS PERCENT MAN 58 % (41-73); TOTAL CELLS COUNTED 100
--- NOTE | 2022-01-05 13:14 | NUR ---
Pt resting in bed and intubated. Pt's eyes are opened and able to respond to yes and no questions. Pt denies pain at this time. Pt's duaghter and Pt's sister at bedside. Offered therapeutic listening and answered questions. Family express appreciation and report no new concerns at this time. Spoke with Primary RN Candie and discussed case. Palliative Care will remain available for supportive visits.
--- NOTE | 2022-01-05 17:04 | NUR ---
SHIFT SUMMARY NO ACUTE CHANGES THIS SHIFT. REMAINS INTUBATED AND SEDATED. WHEN FAMILY AT BEDSIDE, DISCUSSED EXTUBATION TODAY. PT AGREEABLE TO REMAIN INTUBATED UNTIL TOMORROW AND WILL REASSESS. REQUESTING MORE SEDATION TO KEEP HER COMFORTABLE. PROPOFOL INCREASED. VENT SETTINGS AC/VC 16/400/5/35%. LUNGS CLEAR. SCANT THICK JACK SECRETIONS. LEVO GTT CONTINUES FOR MAP>65. SR, RATE 80-110'S. TUBE FEEDS STARTED, VHP AT 20 ML/HR c 30 ML FLUSHES q4 HR. RECTAL TUBE PLACED FOR LIQUID GREEN STOOLS. NOYOLA PATENT, DRAINED 450 ML CLEAR YELLOW URINE OUT. WILL CONTINUE TO MONITOR UNTIL REPORT TO ONCOMING NURSE.
[2022-01-06 05:15] LABS: Hematocrit 36.4 % (33.0-51.0); Hemoglobin 11.9 g/dL (11.5-16.0); Mean Corpuscular HGB 28.9 pg (26.0-34.0); Mean Corpuscular HGB Conc 32.7 g/dL (31.5-36.5); Mean Corpuscular Volume 88 fL (80-100); Mean Platelet Volume 11.1 fL (9.1-12.4); Platelet Count 203 K/mm3 (150-400); RDW Standard Deviation 45.6 fL (35.1-46.3); Red Blood Cell Count 4.12 M/mm3 (3.80-5.20); White Blood Cell Count 18.09 K/mm3 (4.00-11.30)
[2022-01-06 05:47] LABS: Bun/Creatinine Ratio 23.1 (12.0-20.0); Calcium, Blood 8.5 mg/dL (8.5-10.1); Creatinine, Blood 1.17 mg/dL (0.40-1.00); Potassium, Blood 3.7 mmol/L (3.5-5.5)
[2022-01-06 05:58] LABS: BAND PERCENT MAN 6 % (0-8); BASOPHILS ABSOLUTE MAN 0.18 K/mm3 (0.00-0.23); BASOPHILS PERCENT MAN 1 % (0-2); EOSINOPHILS ABSOLUTE MAN 0.18 K/mm3 (0.00-0.68); EOSINOPHILS PERCENT MAN 1 % (0-6); LYMPHOCYTES % ATYPICAL MANUAL 1 % (0-0); LYMPHOCYTES ABSOLUTE MAN 1.44 K/mm3 (0.84-5.20); LYMPHOCYTES PERCENT MAN 7 % (21-46); METAMYELOCYTE ABSOLUTE MAN 0.36 K/mm3 (0.00-0.00); METAMYELOCYTE PERCENT MAN 2 % (0-0); MONOCYTES ABSOLUTE MAN 0.36 K/mm3 (0.16-1.47); MONOCYTES PERCENT MAN 2 % (4-13); MYELOCYTE ABSOLUTE MAN 0.54 K/mm3 (0.00-0.00); MYELOCYTE PERCENT MAN 3 % (0-0); NEUTROPHILS ABSOLUTE MAN 15.01 K/mm3 (1.96-9.15); SEG NEUTROPHILS PERCENT MAN 77 % (41-73); TOTAL CELLS COUNTED 100
--- NOTE | 2022-01-06 06:29 | NUR ---
SHIFT SUMMARY PATIENT REMAINED INTUBATED AND SEDATED WITH PROPOFOL @ 30MCG/KG/MIN. LEVOPHED TURNED OFF THIS MORNING AT 0500 AND MAPS REMAIN 65-70'S. VHP TF INCREASED TO GR OF 35ML/HR. NOYOLA DRAINED 625ML URINE TO GRAVITY AND RECTAL TUBE DRAINED 250ML STOOL. PATIENT REMAINS ALERT AND EASILY AROUSABLE FROM SEDATION. COMMUNICATES WITH COMMUNICATION BOARD, GESTURES, AND DRAWING LETTERS IN THE AIR. NODS HEAD "YES/NO". PG NO LONGER DRAWING BLOOD, BUT FLUSHES APPROPRIATELY. NO OTHER CHANGES DURING SHIFT.
--- NOTE | 2022-01-06 08:11 | NUR ---
ASSUMED CARE PT. AWAKENS EASILY TO VERBAL STIMULI. CURRENTLY ON 30 MCG/KG/MIN OF PROPOFL. PT. SHAKES HEAD NO TO PAIN AND ANSWERS YES AND NO QUESTIONS. PT. ABLE TO PIERSON, BILAT WRIST RESTRAINTS IN PLACE TO PREVENT SELF EXTUBATION. VENT SETTINGS OF AC 16, TV 400, PEEP 5, FIO2 35%. PT CONTINUES WITH THIN PINK SECREATIONS FROM ETT AND COPIOUS AMT OF ORAL SECRETIONS WITH ORAL CARE. PT. MEDIPORT SITE TO R CHEST WALL, NO OOZING, BRUISING, OR SWELLING NOTED TO SITE. TF INFUSING AT GOAL OF 30ML/HR WITH MINIMAL RESIDUAL, REINSTILLED. PT. HAS RECTAL TUBE DRAINING LIQUID GREEN STOOL TO GRAVITY. NOYOLA IN PLACE DARING YELLOW URINE TO GRAVITY. AFEBRILE AT THIS TIME.
--- NOTE | 2022-01-06 09:51 | NUR ---
PT. SEDATION PLACED ON STAND BY, DR. SINGH AT BEDSIDE TO EVAL PLACED ON SPONT VENT SETTINGS OF PS 7, PEEP [address] SINGH PT CALM AND COOPERATIVE AT THIS TIME. TV 550S UP TO 800.
--- NOTE | 2022-01-06 10:41 | NUR ---
PT EXTUBATED AT 1035 PT BILAT WRIST RESTRAINTS REMOVED AT TIME OF EXTUBATION. PT. TOLERATED WELL. ABLE TO PERFOM ORAL CARE FOR SELF UPON EXTUBATION, AND SUCTIONING SELF. PT. PLACED ON 4LNC UPON EXTUBATION, SPO2 93%. RR EVEN AND UNLABORED AT THIS TIME.CALL LIGHT IN REACH, ALL NEEDS MET AT THIS TIME.
[2022-01-06 11:37] LABS: Vancomycin, Trough 16.8 ug/mL (5.0-10.0)
--- NOTE | 2022-01-06 13:42 | NUR ---
Spiritual Care Visit. Pt. is awake in bed and welcomes my visit. Pt. is pleasant, and we establish rapport. Pt. displays eveidence of engagement and motivation to improve. Pt. verbalizes gratitude for the care of the hospital at the time of her admission. Prayed with Pt. Pt. verbalized gratitude for the spiritual care visit.
--- NOTE | 2022-01-06 17:12 | NUR ---
PT AND FAMILY REQUESTING INFORMATION REGARDING POLST FORM. POLST FORM PROVIDED AND REVIEWED WITH PT AND FAMILY. PT IS VERY CLEAR THAT SHE WANTS COMPRESSIONS BUT DOES NOT WANT TO BE REINTUBATED. THIS WAS DISCUSSED IN DETAIL AND PT REMAINS CLEAR SHE DOES NOT WANT INTBUATION BUT DOES WANT COMPRESSIONS, MEDS, AND DEFIB. FAMILY WITNESS AT BEDSIDE. CALL TO DR. ASENCIO, ORDER UPDATED TO REFLECT PT WISHES.
--- NOTE | 2022-01-06 17:30 | NUR ---
SHIFT SUMMARY PT. EXTUBATED THIS SHIFT. CONTINUES TO COUGH UP PINK/JACK SECRETIONS, ABLE TO SUCTION SELF. PT. COOPERATIVE WITH CARE T/O SHIFT. CONTINUES WITH RECTAL TUBE AND NOYOLA IN PLACE DRAINING TO GRAVITY. AFEBRILE T/O SHIFT. PT DENIES PAIN T/O SHIFT. BEDSIDE SWALLOW EVAL COMPLETED, PT TOLERATED WELL. WILL ADVANCE DIET TOLERATED. PT. VSS T/O SHIFT. CALL LIGHT IN REACH. ABLE TO HELP WITH REPOSITIONING. ALL NEEDS MET AT THIS TIME. REPORT TO ONCOMING RN.
--- NOTE | 2022-01-06 19:15 | NUR ---
ASSUMPTION OF CARE PT IS ALERT AND ORIENTED X4, CONVERSATION IS APPROPRIATE AND ABLE TO MAKE NEEDS KNOWN. SHE IS ON 2L NC WITH OXYGEN SAT >90%. S.ARRYTHMIA ON THE UNDERCUTTER OPERATOR W/RATE IN THE 70-80'S. BP WNL. NO S/S OF ACUTE DISTRESS NOTED AT TIME OF ASSESSMENT AND NO DISTRESS REPORTED BY PT.
[2022-01-07 04:28] LABS: Hematocrit 33.2 % (33.0-51.0); Hemoglobin 10.9 g/dL (11.5-16.0); Mean Corpuscular HGB 28.8 pg (26.0-34.0); Mean Corpuscular HGB Conc 32.8 g/dL (31.5-36.5); Mean Corpuscular Volume 88 fL (80-100); Mean Platelet Volume 10.8 fL (9.1-12.4); Platelet Count 202 K/mm3 (150-400); RDW Standard Deviation 44.8 fL (35.1-46.3); Red Blood Cell Count 3.78 M/mm3 (3.80-5.20); White Blood Cell Count 21.39 K/mm3 (4.00-11.30)
[2022-01-07 04:43] LABS: Bun/Creatinine Ratio 25.7 (12.0-20.0); Calcium, Blood 8.5 mg/dL (8.5-10.1); Creatinine, Blood 1.09 mg/dL (0.40-1.00); Magnesium, Blood 2.5 mg/dL (1.6-2.4); Phosphorus, Blood 5.1 mg/dL (2.5-4.9); Potassium, Blood 3.4 mmol/L (3.5-5.5)
[2022-01-07 05:12] LABS: BAND PERCENT MAN 17 % (0-8); BASOPHILS PERCENT MAN 0 % (0-2); EOSINOPHILS PERCENT MAN 0 % (0-6); LYMPHOCYTES ABSOLUTE MAN 0.85 K/mm3 (0.84-5.20); LYMPHOCYTES PERCENT MAN 4 % (21-46); METAMYELOCYTE ABSOLUTE MAN 0.64 K/mm3 (0.00-0.00); METAMYELOCYTE PERCENT MAN 3 % (0-0); MONOCYTES ABSOLUTE MAN 1.71 K/mm3 (0.16-1.47); MONOCYTES PERCENT MAN 8 % (4-13); NEUTROPHILS ABSOLUTE MAN 18.18 K/mm3 (1.96-9.15); SEG NEUTROPHILS PERCENT MAN 68 % (41-73); TOTAL CELLS COUNTED 100
--- NOTE | 2022-01-07 06:25 | NUR ---
SHIFT SUMMERY PT HAS HAD AN UNEVENTFUL SHIFT, VS WNL. NO COMPLAINTS OF PAIN OR ACUTE DISTRESS. SHE HAS HAD A PRODUCTIVE COUGHT W/SOME BILATERAL WHEEZING BUT OXYGEN SAT HAVE BEEN GREATER THAN 90% THROUGHOUT THE NIGHT. NOYOLA CATHETER AND RECTAL TUBE INTACT, PATENT AND DRAINING. AFEBRILE.
--- NOTE | 2022-01-07 07:18 | NUR ---
TOOK OVER CARE OF PT AT 0700. PT RESTING ON 2LNC
--- NOTE | 2022-01-07 18:56 | NUR ---
SUMMARY NEURO; WNL LUNGS; INTERMITTENT WHEEZES, COARSE LUNGS SOUNDS, PRODUCTIVE COUGH. PT IS USING FLUTTER VALVE AND PULLING 1500ML ON INCENTIVE SPIROMETER. SOB WITH EXERTION. 2L NC ONLY NEEDED TODAY DURING MEALS. CARDIAC: ONE SHORT EPISODE OF TACHYCARDIA. PT OSCILLATING BETWEEN NSR AND SINUS ARRYTHMIA. TRACE EDEMA ON BUE AND BLE. GI: RECTAL TUBE REMOVED TODAY. LOOSE GREEN STOOLS, PT STATES THIS IS NORMAL FOR THE PAST FOUR MONTHS. PT IS ABLE TO CONTROL BOWELS BUT HAS URGENCY. 40MEQ PO POTASSIUM GIVEN TODAY. : NOYOLA ALSO REMOVED, PT HAS VOIDED SEVERAL TIME SINCE. NO SIGNS OF RETENTION AT THIS TIME.
--- NOTE | 2022-01-07 19:30 | NUR ---
ASSUMED CARE OF PT AT 1900. REPORT RECEIVED FROM IBAN BUI. PT IS RESTING COMFORTABLY IN BED, AO, DENIES PAIN/DISCOMFORT. SHE REQUESTS TO BE BOOSTED IN THE BED. REVIEWED POC FOR TONIGHT AND PT WILL CALL FOR BATHROOM ASSISTANCE.
--- NOTE | 2022-01-08 03:03 | NUR ---
ASSUMED CARE OF PT AT 0300. REPORT RECEIVED FROM IBAN OJEDA
[2022-01-08 11:17] LABS: Hematocrit 36.1 % (33.0-51.0); Hemoglobin 11.7 g/dL (11.5-16.0); Mean Corpuscular HGB 29.2 pg (26.0-34.0); Mean Corpuscular HGB Conc 32.4 g/dL (31.5-36.5); Mean Corpuscular Volume 90 fL (80-100); Mean Platelet Volume 10.7 fL (9.1-12.4); Platelet Count 224 K/mm3 (150-400); RDW Coefficient Variation 14.3 % (11.7-14.2); RDW Standard Deviation 47.2 fL (35.1-46.3); Red Blood Cell Count 4.01 M/mm3 (3.80-5.20); White Blood Cell Count 11.64 K/mm3 (4.00-11.30)
[2022-01-08 11:36] LABS: Vancomycin, Trough 16.7 ug/mL (5.0-10.0)
[2022-01-08 11:40] LABS: Albumin, Blood 2.4 g/dL (3.4-5.0); Albumin/Globulin Ratio 0.7 (0.8-1.8); Bilirubin, Total 0.3 mg/dL (0.1-1.0); Bun/Creatinine Ratio 20.9 (12.0-20.0); Calcium, Blood 8.9 mg/dL (8.5-10.1); Creatinine, Blood 1.1 mg/dL (0.40-1.00); Globulin, Blood 3.3 g/dL (2.2-4.0); Potassium, Blood 3.6 mmol/L (3.5-5.5); Total Protein, Blood 5.7 g/dL (6.4-8.2)
[2022-01-08 11:43] LABS: BAND PERCENT MAN 4 % (0-8); BASOPHILS PERCENT MAN 0 % (0-2); EOSINOPHILS ABSOLUTE MAN 0.11 K/mm3 (0.00-0.68); EOSINOPHILS PERCENT MAN 1 % (0-6); LYMPHOCYTES ABSOLUTE MAN 0.46 K/mm3 (0.84-5.20); LYMPHOCYTES PERCENT MAN 4 % (21-46); METAMYELOCYTE ABSOLUTE MAN 0.23 K/mm3 (0.00-0.00); METAMYELOCYTE PERCENT MAN 2 % (0-0); MONOCYTES ABSOLUTE MAN 0.46 K/mm3 (0.16-1.47); MONOCYTES PERCENT MAN 4 % (4-13); MYELOCYTE ABSOLUTE MAN 0.11 K/mm3 (0.00-0.00); MYELOCYTE PERCENT MAN 1 % (0-0); NEUTROPHILS ABSOLUTE MAN 10.24 K/mm3 (1.96-9.15); SEG NEUTROPHILS PERCENT MAN 84 % (41-73); TOTAL CELLS COUNTED 100
--- NOTE | 2022-01-08 14:12 | NUR ---
EMEKA HAS DONE WELL TODAY, BEEN UP IN THE CHAIR SINCE RIGHT AFTER BREAKFAST. SHE IS BREATHING WELL WITH HER OXYGEN, IF IT IS NOT FLOWING SHE DROPS TO MID 80S. SHE TIRES EASILY, GETS TACHYCARDIC AND TACHYPNEIC, IS ABLE TO COUGH AND USE SUCTION TO CLEAR HER MOUTH. SHE HAD HER SISTER AND DAUGHTER IN TO VISIT. QUESTIONS REGARDING HER APPOINTMENT WITH TOMORROW AND IN REGARDS TO GOING HOME WITHOUT PHYSICAL HELP. DISCUSSION HAD. SHE HAS COMPLAINED OF A DRY/BLOODY NOSE, EAR/JAW AND HEAD ACHE. WAS MADE AWARE UPON HIS VISIT TODAY. SHE IS TAKING IN ICE WATER. UP TO THE BSC X 2.
--- NOTE | 2022-01-08 16:37 | NUR ---
EMEKA RETURNED TO BED, SAID SHE WAS TIRED. IS DOING WELL AT COUGHING AND CLEARING HER SECRETIONS WITH THE YANKAUER SUCTION. SHE SAID SHE IS CONCERNED THAT SHE ISN'T STRONG ENOUGH TO CARE FOR HERSELF, DISAPPOINTED THAT HER SISTER IMPLIED THAT SHE WOULDN'T BE ABLE TO PHYSICALLY ASSIST HER. DAUGHTER MUST RETURN HOME TO [facility].
--- NOTE | 2022-01-08 18:13 | NUR ---
REPORT GIVEN TO IBAN GARNER, PT THEN TRANSFERRED VIA WHEELCHAIR TO MEDICAL FLOOR ROOM 363. IBAN KNOX RECEIVED PATIENT, TRANSFERRED TO BED. PHONE CALL TO SISTER TO LET HER KNOW THAT SHE MOVED FLOORS.
--- NOTE | 2022-01-08 18:44 | NUR ---
SHIFT SUMMARY: PT WAS TRANSPORTED TO [facility] FLOOR THIS EVENING. REPORT RECEIVED BY OLESYA FERRERA. PT ON ARRIVAL IS AWAKE A/O X 4, STANDBY ASSIST, PLEASANT AND COOPERATIVE. SHE HAS HAD NO C/O PAIN, N/V. SHE URINATED IN BSC, URINE DARK YELLOW, MIXED WITH LIQUID BROWN STOOL SMALL AMOUNT. PT DENIES ABD PAIN. SHE DOES GET SOB WITH EXERTION AND IS WHEEZY. DENIES NEED FOR BREATHING TX. SHE IS ON 2 LPM VIA NC. WILL REPORT TO DALTON FERRERA.
[2022-01-09 05:50] LABS: Hematocrit 35.1 % (33.0-51.0); Hemoglobin 11.1 g/dL (11.5-16.0); Mean Corpuscular HGB 28.5 pg (26.0-34.0); Mean Corpuscular HGB Conc 31.6 g/dL (31.5-36.5); Mean Corpuscular Volume 90 fL (80-100); Mean Platelet Volume 10.7 fL (9.1-12.4); Platelet Count 229 K/mm3 (150-400); RDW Coefficient Variation 13.9 % (11.7-14.2); RDW Standard Deviation 46.4 fL (35.1-46.3); Red Blood Cell Count 3.89 M/mm3 (3.80-5.20); White Blood Cell Count 11.41 K/mm3 (4.00-11.30)
[2022-01-09 06:10] LABS: BAND PERCENT MAN 7 % (0-8); BASOPHILS PERCENT MAN 0 % (0-2); EOSINOPHILS PERCENT MAN 0 % (0-6); LYMPHOCYTES ABSOLUTE MAN 0.79 K/mm3 (0.84-5.20); LYMPHOCYTES PERCENT MAN 7 % (21-46); METAMYELOCYTE ABSOLUTE MAN 0.22 K/mm3 (0.00-0.00); METAMYELOCYTE PERCENT MAN 2 % (0-0); MONOCYTES ABSOLUTE MAN 0.79 K/mm3 (0.16-1.47); MONOCYTES PERCENT MAN 7 % (4-13); MYELOCYTE ABSOLUTE MAN 0.34 K/mm3 (0.00-0.00); MYELOCYTE PERCENT MAN 3 % (0-0); NEUTROPHILS ABSOLUTE MAN 9.24 K/mm3 (1.96-9.15); SEG NEUTROPHILS PERCENT MAN 74 % (41-73); TOTAL CELLS COUNTED 100
--- NOTE | 2022-01-09 06:31 | NUR ---
SUMMARY NO NEW ISSUES NOTED. PT COMPLAINED OF COUGH PROVIDER JACOBO CALLED AND HE ORDERED SOME COUGH MEDS. PT HAS BEEN ABLE TO SLEEP THIS SHIFT. PT HAS BEEN VOIDING WELL T/OUT SHIFT. PT CURRENTLY RESTING AND IN NO DISTRESS. CALL LIGHT IN REACH.
[2022-01-09 06:38] LABS: Albumin, Blood 2.5 g/dL (3.4-5.0); Calcium, Blood 8.9 mg/dL (8.5-10.1); Potassium, Blood 3.6 mmol/L (3.5-5.5)
[2022-01-09 06:40] LABS: Albumin/Globulin Ratio 0.8 (0.8-1.8); Bilirubin, Total 0.4 mg/dL (0.1-1.0); Bun/Creatinine Ratio 20.5 (12.0-20.0); Creatinine, Blood 1.12 mg/dL (0.40-1.00); Globulin, Blood 3.3 g/dL (2.2-4.0); Total Protein, Blood 5.8 g/dL (6.4-8.2)
--- NOTE | 2022-01-09 20:21 | NUR ---
SHIFT SUMMARY: PT A/OX4 IND IN ROOM, PLEASANT AND COOPERATIVE WITH CARE. WEANED PT OFF O2 TODAY, WITH SATS MAINTAINED AT 92%. PT DID WORK WITH PT TODAY AND DID DROP TO 88% WITH EXERTION AND RECOVERED WITH PURSED LIP BREATHING. PT STILL HAS COUGH AND REPORTS IT IS WORSE AT NIGHT. PT DID NOT C/O PAIN/N/V/DIARRHEA TODAY. DAUGHTER CALLED TODAY AND VOICED CONCERN OF PT GOING HOME TOMORROW HER SISTER SHE LIVES WITH CANNOT PHYSICALLY HELP HER WITH ADL'S AND DAUGHTER WILL BE GOING HOME SOON OUT OF TOWN. PT AWARE OF CONCERNS AND EXPRESSED INTEREST IN SETTING UP CAREGIVERS IN HOME TO ASSIST WITH ADL'S.
--- NOTE | 2022-01-10 05:11 | NUR ---
SHIFT SUMMARY ADMITTED FOR MEDIPORT INSERTION. DNI CODE. RT CHEST PORT IN PLACE. POWERGLIDE IN RUE. REGULAR DIET. ON RA. ON 2 LPM O2 PRN. HOPEFUL FOR DC HOME TODAY W/HH. A&O X4. INDEPENDENT IN ROOM. IV ANTIB RX ARE SCHEDULED. HX: OVARIAN CANCER & CHEMO
[2022-01-10 05:58] LABS: Hematocrit 35.9 % (33.0-51.0); Hemoglobin 11.3 g/dL (11.5-16.0); Mean Corpuscular HGB 28.5 pg (26.0-34.0); Mean Corpuscular HGB Conc 31.5 g/dL (31.5-36.5); Mean Corpuscular Volume 91 fL (80-100); Mean Platelet Volume 10.5 fL (9.1-12.4); Platelet Count 254 K/mm3 (150-400); RDW Coefficient Variation 13.7 % (11.7-14.2); RDW Standard Deviation 44.9 fL (35.1-46.3); Red Blood Cell Count 3.96 M/mm3 (3.80-5.20); White Blood Cell Count 9.31 K/mm3 (4.00-11.30)
[2022-01-10 06:13] LABS: Albumin, Blood 2.6 g/dL (3.4-5.0); Albumin/Globulin Ratio 0.7 (0.8-1.8); Bilirubin, Total 0.7 mg/dL (0.1-1.0); Bun/Creatinine Ratio 19.7 (12.0-20.0); Calcium, Blood 9.2 mg/dL (8.5-10.1); Creatinine, Blood 1.22 mg/dL (0.40-1.00); Globulin, Blood 3.5 g/dL (2.2-4.0); Magnesium, Blood 2.5 mg/dL (1.6-2.4); Phosphorus, Blood 3.2 mg/dL (2.5-4.9); Potassium, Blood 3.3 mmol/L (3.5-5.5); Total Protein, Blood 6.1 g/dL (6.4-8.2)
[2022-01-10 06:20] LABS: BAND PERCENT MAN 2 % (0-8); BASOPHILS ABSOLUTE MAN 0.09 K/mm3 (0.00-0.23); BASOPHILS PERCENT MAN 1 % (0-2); EOSINOPHILS PERCENT MAN 0 % (0-6); LYMPHOCYTES ABSOLUTE MAN 1.76 K/mm3 (0.84-5.20); LYMPHOCYTES PERCENT MAN 19 % (21-46); METAMYELOCYTE ABSOLUTE MAN 0.09 K/mm3 (0.00-0.00); METAMYELOCYTE PERCENT MAN 1 % (0-0); MONOCYTES ABSOLUTE MAN 0.93 K/mm3 (0.16-1.47); MONOCYTES PERCENT MAN 10 % (4-13); MYELOCYTE ABSOLUTE MAN 0.27 K/mm3 (0.00-0.00); MYELOCYTE PERCENT MAN 3 % (0-0); NEUTROPHILS ABSOLUTE MAN 6.14 K/mm3 (1.96-9.15); SEG NEUTROPHILS PERCENT MAN 64 % (41-73); TOTAL CELLS COUNTED 100
--- NOTE | 2022-01-10 13:12 | NUR ---
PT LEG MEASURED FOR ANTI EMBOLIC STOCKINGS. MEASUREMENTS WERE 38 CM X 45 CM. FITTED WITH SIZE LARGE AND PT EDUCATED ON USE. PT VU.
[2022-01-10] MEDS ORDERED: Acetaminophen650 M1 PO (14:57)
[2022-01-10] MEDS ORDERED: AMOCLA875 PO (14:59)
[2022-01-10] MEDS ORDERED: PROBIOTIC1 EA13 PO (14:59)
[2022-01-10] MEDS ORDERED: Prednisone10 MG PO (14:59)
[2022-01-10] MEDS ORDERED: FURO20 PO (15:00)
[2022-01-10] MEDS ORDERED: SPIR25 PO (15:00)
[2022-01-10] MEDS ORDERED: BENZ100A PO (15:02)
--- NOTE | 2022-01-10 16:01 | NUR ---
DISCHARGE SUMMARY: PT DISCHARGED TODAY WITH HOME HEALTH SERVICES. PT EDUCATED ON DISCHARGE INSTRUCTIONS, INCLUDING MEDICATION, FOLLOW-UP, MEDIPORT MANAGEMENT. PT WALKER DELIVERED TO HOSPITAL AND SENT WITH PATIENT. LABS FOR DR. MCRAE APPT PRINTED FOR PT TO TAKE TO APPOINTMENT PER DR. MCRAE SUPPLY TECH REQUEST. ASSISTED PT WITH PACKING UP BELONGINGS AND ESCORTED PT TO DAUGHTER'S POV VIA WC. VERIFIED [facility] RECEIVED PRESCRIPTIONS VIA FAX.
== END 2022-01-10 16:03 | disposition home health service (06) ==
LOC: ORSCMMR 10:04 → ORD 11:30 → PCU 17:49 → ORSCMMR 18:28 → PCU 18:28 → MEDS 12-30 15:23 → PCU 12-30 15:23 → ICUE 12-30 15:23 → MEDS 12-30 15:23 → PCU 12-30 15:24 → MEDS 12-31 11:37 → ICUE 01-04 10:37 → MEDS 01-08 17:47 → ENPENDDIS 01-10 12:51 → MEDS 01-10 16:03
PROVIDERS: Family Medicine; Internal Medicine; Internal Medicine Critical Care Medicine; Surgery; ADMIT Hospitalist
PROC: 0JH60WZ Insertion of Totally Implantable Vascular Access Device into Chest Subcutaneous Tissue and Fascia, Open Approach (ICD-10-PCS; 2021-12-29)
PROC: 02HV33Z Insertion of Infusion Device into Superior Vena Cava, Percutaneous Approach (ICD-10-PCS; principal; 2021-12-29 11:30)
PROC: 0BH17EZ Insertion of Endotracheal Airway into Trachea, Via Natural or Artificial Opening (ICD-10-PCS; 2022-01-04)
PROC: 5A1945Z Respiratory Ventilation, 24-96 Consecutive Hours (ICD-10-PCS; 2022-01-04)
PROC: 3E033XZ Introduction of Vasopressor into Peripheral Vein, Percutaneous Approach (ICD-10-PCS; 2022-01-04)
DX: J69.0 Pneumonitis due to inhalation of food and vomit (principal); J96.01 Acute respiratory failure with hypoxia; J96.02 Acute respiratory failure with hypercapnia; C56.9 Malignant neoplasm of unspecified ovary; C78.6 Secondary malignant neoplasm of retroperitoneum and peritoneum; J90 Pleural effusion, not elsewhere classified; Z20.822 Contact with and (suspected) exposure to COVID-19; E78.5 Hyperlipidemia, unspecified; E03.9 Hypothyroidism, unspecified; E66.01 Morbid (severe) obesity due to excess calories; J32.4 Chronic pansinusitis; T45.1X5A Adverse effect of antineoplastic and immunosuppressive drugs, initial encounter; E87.6 Hypokalemia; D70.1 Agranulocytosis secondary to cancer chemotherapy; E87.70 Fluid overload, unspecified; D69.59 Other secondary thrombocytopenia; H35.30 Unspecified macular degeneration; H40.9 Unspecified glaucoma; M19.90 Unspecified osteoarthritis, unspecified site; Z68.36 Body mass index [BMI] 36.0-36.9, adult; Z90.710 Acquired absence of both cervix and uterus; Z98.890 Other specified postprocedural states; Z88.8 Allergy status to other drugs, medicaments and biological substances; Z79.899 Other long term (current) drug therapy
CPT/HCPCS: 0202U; 0241U; 31500; 36415; 36600; 51702; 70450; 71045; 71046; 71260; 77001; 80048; 80053; 80069; 80202; 81001; 82330; 82565; 82803; 82947; 83605; 83735; 83880; 84100; 84145; 84484; 85025; 85379; 87040; 87070; 87205; 93005; 93010; 94002; 94003; 94640; 94664; 94760; 94762; 96361; 96372; 96374; 96375; 97110; 97116; 97161; 97162; 97530; A9270; C1751; C1788; C9113; G0378; J0330; J0456; J0690; J0696; J1642; J1650; J1940; J2370; J2543; J2704; J2795; J2920; J3010; J3370; J3480; J7030; J7040; J7050; J7060; J7120; J7512; Q5110; Q9967; U0004